=== PATIENT | female | born 1995 | race Caucasian/White ===

== ENCOUNTER 2016-10-30 17:01 | Emergency (ER) ==
[2016-10-30 17:04] VITALS: BP 112/76; TEMP 98.3; BMI 32.8
--- NOTE | 2016-10-30 17:13 | ED.PDOC ---
General ED Provider: Dr. ANAI VALADEZ JR Chief Complaint: Kidney Stone Stated Complaint: PATIENT C/O PAIN TO LEFT FLANK AND AROUND TO LEFT ABD. STATES HAS A HX OF KIDNEY STONES[End]since this morning 98.3 91 20 98% 112/76 Time Seen by Physician: 17:12 Mode of Arrival: Walk-In Information Source: Patient Exam Limitations: No limitations Primary Care Provider: SANDRA STAPLES Nursing and Triage Documentation Reviewed and Agree: No Review of Systems - Review Of Systems Constitutional: Reports: Malaise Eyes: Reports: No symptoms Ears, Nose, Mouth, Throat: Reports: No symptoms Respiratory: Reports: No symptoms Cardiac: Reports: No symptoms GI: Reports: Abdominal pain : Reports: Flank pain Musculoskeletal: Reports: Back pain Skin: Reports: No symptoms Neurological: Reports: No symptoms Endocrine: Reports: No symptoms Hematologic/Lymphatic: Reports: No symptoms All Other Systems: Other Past Medical History - Past Medical History Endocrine: Reports: Hypothyroid Cardiovascular: Reports: None Respiratory: Reports: None Hematological: Reports: None Gastrointestinal: Reports: None Genitourinary: Reports: Kidney stones Neuro/Psych: Reports: Anxiety, Depression Musculoskeletal: Reports: None Cancer: Reports: None Last Menstrual Period: NOW Other Pertinent Past Medical History: MISCARRIAGES X2 - Surgical History General Surgical History: Reports: Other (ECTOPIC PREG.) - Family History Family History: Reports: Unknown - Social History Smoking Status: Current every day smoker Hx Substance Use: No Alcohol Screening: None Physical Exam - Physical Exam Appearance: Well-appearing Pain Distress: Moderate Neck: Supple Respiratory: Airway patent GI/: Soft, Tender Musculoskeletal: Normal strength Skin: Warm Neurological: Sensation intact Critical Care Note - Critical Care Note Total Time (mins): 0 Course - Course Hematology/Chemistry: 10/30/16 17:35 10/30/16 17:35 Orders, Labs, Meds: Lab Review 10/30/16 10/30/16 17:32 17:35 WBC 11.11 H RBC 5.14 Hgb 14.5 Hct 43.2 MCV 84.0 MCH 28.2 MCHC 33.6 RDW Coeff of Shyla 12.9 Plt Count 267 Immature Gran % (Auto) 0.6 Neut % (Auto) 65.2 Lymph % (Auto) 24.6 Garza % (Auto) 5.5 Eos % (Auto) 3.8 Baso % (Auto) 0.3 Immature Gran # (Auto) 0.1 Neut # 7.3 H Lymph # 2.7 Garza # 0.6 Eos # 0.4 Baso # 0.0 Sodium 142 Potassium 4.1 Chloride 108 H Carbon Dioxide 26 Anion Gap 12.1 BUN 13 Creatinine 0.77 Estimated GFR (MDRD) 95.00 BUN/Creatinine Ratio 16.88 Glucose 81 Calcium 9.9 Total Bilirubin 0.20 AST 15 ALT 18 Alkaline Phosphatase 74 Total Protein 6.6 Albumin 3.3 L Globulin 3.3 Albumin/Globulin Ratio 1.00 Serum , Qual Negative Urine Color Yellow Urine Clarity Clear Urine pH 8.5 Ur Specific [place] 1.020 Urine Protein Negative Urine Glucose (UA) Negative Urine Ketones Negative Urine Blood 3+ Urine Nitrite Negative Urine Bilirubin Negative Urine Urobilinogen 0.2 Ur Leukocyte Esterase Negative Urine Microscopic RBC 10-20 Urine Microscopic WBC 0-2 Ur Squamous Epith Cells 2-5 Orders Category Date Time Status ED IV/MEDIPORT/POWERPORT .ONCE EMERGENCY 10/30/16 17:25 Active CBC W/ AUTO DIFF Stat LAB 10/30/16 17:35 Completed COMPREHENSIVE METABOLIC PANEL Stat LAB 10/30/16 17:35 Completed SERUM Stat LAB 10/30/16 17:35 Completed URINALYSIS C & S IF INDICATED Stat LAB 10/30/16 17:32 Completed 0.9 % Sodium Chloride [Saline Flush] MEDS 10/30/16 17:25 Ordered 1 syr IVF PRN PRN Ketorolac Tromethamine [Toradol] MEDS 10/30/16 17:26 Discontinued 30 mg IVP ONCE STA Ketorolac Tromethamine [Toradol] MEDS 10/30/16 17:36 Discontinued 60 mg IM ONCE STA CT ABDOMEN/PELVIS WO CONTRAST Stat RADS 10/30/16 17:25 Completed Medications Generic Name Dose Route Start Last Admin Trade Name Freq PRN Reason Stop Dose Admin Sodium Chloride 1 syr 10/30/16 17:25 Saline Flush IVF PRN PRN To flush IV Discontinued Medications Generic Name Dose Route Start Last Admin Trade Name Freq PRN Reason Stop Dose Admin Ketorolac Tromethamine 30 mg 10/30/16 17:26 10/30/16 17:41 Toradol IVP 10/30/16 17:27 Not Given ONCE STA Ketorolac Tromethamine 60 mg 10/30/16 17:36 10/30/16 17:41 Toradol IM 10/30/16 17:37 60 mg ONCE STA Administration Vital Signs: Temp Pulse Resp BP Pulse Ox 10/30/16 17:01 98.3 F 91 H 20 112/76 98 Departure - Departure Time of Disposition: 18:49 Disposition: HOME SELF-CARE Discharge Problem: Back pain Instructions: Back Pain (ED) Condition: Good Pt referred to PMD for follow-up: Yes Additional Instructions: no ureteral stones present on xray stones in kidneys will not cause symptoms-but need to increse fluids to avoid new stones clear liquids 6-8 eight ounce cups daily recheck PMD one week may use toradol for pain Prescriptions: Ketorolac Tromethamine [Toradol] 10 mg PO QID PRN #20 tablet PRN Reason: PAIN Allergies/Adverse Reactions: Allergies No Known Allergies Allergy (Unverified 10/30/16 17:04) Home Medications: Ambulatory Orders Ketorolac Tromethamine [Toradol] 10 mg PO QID PRN #20 tablet 10/30/16 Levothyroxine Sodium [Tirosint] 75 mcg PO DAILY 10/30/16
[2016-10-30] MEDS ORDERED: TORADOL IVP STA (17:26)
[2016-10-30] MEDS ORDERED: TORADOL IM STA (17:36)
[2016-10-30 17:43] LABS: BASOPHILS % (AUTO) 0.3 % (0.0-3.0); EOSINOPHILS # (AUTO) 0.4 K/ul (0.0-0.7); EOSINOPHILS % (AUTO) 3.8 % (0.0-7.0); HEMATOCRIT 43.2 % (37.0-47.0); HEMOGLOBIN 14.5 g/dl (12.0-16.0); IMMATURE GRANULOCYTE % (AUTO) 0.6 % (0.0-5.0); LYMPHOCYTES # (AUTO) 2.7 K/uL (0.60-3.4); LYMPHOCYTES % (AUTO) 24.6 (10.0-50.0); MEAN CORPUSCULAR HEMOGLOBIN 28.2 pg (27.0-31.0); MEAN CORPUSCULAR HGB CONC 33.6 (31.8-35.4); MONOCYTES # (AUTO) 0.6 K/uL (0.4-2.0); MONOCYTES % (AUTO) 5.5 (0-10); NEUTROPHILS # (AUTO) 7.3 K/ul (2.0-6.9); NEUTROPHILS % (AUTO) 65.2; PLATELET COUNT 267 10^3/uL (140-440); RED BLOOD COUNT 5.14 10^6/ul (4.20-5.40); WHITE BLOOD COUNT 11.11 K/ul (4.6-10.2)
[2016-10-30 17:49] LABS: BILIRUBIN,URINE Negative (NEGATIVE); KETONES,URINE Negative (NEGATIVE); LEUKOCYTE ESTERASE ,URINE Negative (NEGATIVE); NITRITE,URINE Negative (NEGATIVE); PH,URINE 8.5 (5-9); PROTEIN,URINE Negative (NEGATIVE); URINE, BLOOD 3+ (NEGATIVE)
[2016-10-30 17:50] LABS: ADD URINE MICROSCOPIC YES
[2016-10-30 18:00] LABS: ALBUMIN 3.3 g/dL (3.4-5.0); ANION GAP 12.1; BILIRUBIN,TOTAL 0.2 mg/dL (0.00-1.20); BUN/CREATININE RATIO 16.88; CALCIUM 9.9 mg/dL (8.2-10.2); CREATININE 0.77 mg/dL (0.60-1.30); POTASSIUM 4.1 mmol/L (3.5-5.10); TOTAL PROTEIN 6.6 g/dL (6.4-8.2)
[2016-10-30 18:03] LABS: SERUM PREGNANCY INTERNAL QC INTERNAL QC VALID
--- NOTE | 2016-10-30 18:38 | CT ---
Exam: CT of the abdomen pelvis without contrast History: Abdominal pain Technique: [address] of the abdomen pelvis without intravascular contrast FINDINGS: The lung bases are clear. No significant liver abnormality. The adrenals, pancreas and sp luanne are unremarkable. The stomach and hiatus are unremarkable. The gallbladder appears normal. Bila teral nonobstructing nephrolithiasis. There are at least three nonobstructing calcifications on the right with the largest measuring 3 mm. There are two nonobstructing calcifications identified on t he left with the largest measuring 4.8 mm. The appendix is normal. Bowel loops demonstrate normal c aliber. No inflamatory change seen in the mesentery or retroperitoneum. Vascular structures appear n ormal by noncontrast CT. Pelvic genitourinary structures appear normal. Pelvic bowel loops are unremarkable. No inflammatory change in the pelvic fat. No acute abnormality of the abdominal or pelvic skeleton. Impression: 1. No inflammatory process, bowel or urinary obstruction is seen. 2. Bilateral nonobstructing nephrolithiasis
== END 2016-10-30 19:01 | disposition home or self-care (01) ==
LOC: ED 17:01
DX: M54.9 Dorsalgia, unspecified (principal); R10.9 Unspecified abdominal pain; F17.210 Nicotine dependence, cigarettes, uncomplicated; Z87.442 Personal history of urinary calculi
CPT/HCPCS: 36415; 80053; 81001; 84703; 85025; 96372; 99283